=== PATIENT | male | born 1955 | race Caucasian/White ===

== ENCOUNTER 2024-07-19 07:07 | Day surgery (SDC) | payer MEDICARE ==
[~2024-07-19] VITALS: Ht 172.7 cm; Wt 133.8 kg
[~2024-07-19 07:07] MED LIST: BENAZEPRIL10 M1 PO; FLUOXETINE HCL20 M2 PO; NORVASC PO; TAMSULOSIN0.4 MG PO
[2024-07-19] MEDS ORDERED: SODIUM CHLORIDE 0.9% 1,000 ML IV ONE (07:12)
[2024-07-19] MEDS ORDERED: FAMOTIDINE 10MG/ML 2ML SDV IV ONE (07:12)
[2024-07-19 09:05] VITALS: BP 125/77
[2024-07-19] MEDS ORDERED: PROPOFOL 200 MG/20 ML VIAL IV ONE (10:21)
[2024-07-19] MEDS ORDERED: GLYCOPYRROLATE 0.2 MG/ML IV ONE (10:21)
[2024-07-19] MEDS ORDERED: LIDOCAINE HCL 2% 2ML SDV IV ONE (10:21)
== END 2024-07-19 09:13 | disposition home or self-care (01) ==
LOC: ORM 07:07
PROVIDERS: ATTEND Surgery
PROC: 0DJD8ZZ Inspection of Lower Intestinal Tract, Via Natural or Artificial Opening Endoscopic (ICD-10-PCS; principal; 2024-07-19)
DX: Z12.11 Encounter for screening for malignant neoplasm of colon (principal); K57.30 Diverticulosis of large intestine without perforation or abscess without bleeding; K64.8 Other hemorrhoids; I10 Essential (primary) hypertension; F32.A Depression, unspecified; Z86.0100 Personal history of colon polyps, unspecified
CPT/HCPCS: J1596